=== PATIENT | male | born 1935 | race Caucasian/White ===

== ENCOUNTER 2019-07-31 19:19 | Inpatient (IN) ==
[2019-07-31] MEDS ORDERED: 0.9 % Sodium Chloride 1,000 ML IV ONE (19:28)
[2019-07-31 19:51] LABS: Basophils % 0.2 %; Eosinophils % 0.3 %; Hematocrit 38.1 % (37.5-50.1); Immature Granulocytes % 0.4 % (0-4); Lymphocytes # 1.6 K/mcL (0.6-4.6); Lymphocytes % 16.7 %; Mean Corpuscular HGB Conc 34.1 g/dL (31.6-35.5); Mean Corpuscular Hemoglobin 28.7 pg (28.0-33.3); Mean Corpuscular Volume 84.1 fL (83.0-100.0); Mean Platelet Volume 10.4 fL (9.4-12.4); Monocytes % 10.8 %; Neutrophils # 6.6 K/mcL (1.6-8.9); Platelet Count 169 K/mcL (140-400); Red Blood Count 4.53 M/mcL (4.19-5.50); Red Cell Distribution Width 14.3 % (11.5-14.5); Segmented Neutrophils % 71.6 %; White Blood Count 9.3 K/mcL (4.3-11.1)
[2019-07-31 19:57] LABS: INR 1.1; Prothrombin Time 12.3 Seconds (9.4-12.1)
[2019-07-31 20:09] LABS: Alanine Aminotransferase 6 Units/L (7-52); Albumin 4.3 g/dL (3.5-5.7); Albumin/Globulin Ratio 1.4 (1.1-2.2); Alkaline Phosphatase 51 Units/L (34-104); Aspartate Amino Transferase 11 Units/L (13-39); BUN/Creatinine Ratio 16 (6-26); Bilirubin,Total 1.3 mg/dL (0.3-1.0); Blood Urea Nitrogen 19 mg/dL (8-23); Calcium 10.1 mg/dL (8.6-10.3); Carbon Dioxide 24 mEq/L (23-29); Chloride 102 mEq/L (98-107); Globulin 3.1 g/dL (2.4-3.5); Glucose 96 mg/dL (70-105); Magnesium 2.1 mg/dL (1.6-2.6); Osmolality,Calculated 282 (280-300); Potassium 4.2 mEq/L (3.5-5.1); Sodium 135 mEq/L (136-145); Total Protein 7.4 g/dL (6.4-8.9); eGFR For African Americans > 60 (> 60); eGFR For Non-African Americans 57 (> 60)
[2019-07-31 20:13] LABS: Troponin I < 0.03 ng/mL (< 0.04)
[2019-07-31] MEDS ORDERED: Naloxone 0.4 MG/ML INJ IVP PRN ×2 (21:43→23:46)
[2019-07-31 22:03] LABS: Bilirubin,Urine Negative (Negative); Blood,Urine Moderate (Negative); Clarity,Urine Clear (Clear); Color,Urine Yellow (Yellow); Glucose,Urine (UA) Normal (Normal); Ketones,Urine 15 mg/dL (Negative); Leukocyte Esterase,Urine Moderate (Negative); Nitrite,Urine Positive (Negative); PH,Urine 5.5 pH Units (5.0-8.0); Protein,Urine Trace mg/dL (Neg-Trace); Urobilinogen,Urine Normal (Normal)
[2019-07-31 22:09] LABS: Bacteria,Urine Many per hpf (None-Few); Hyaline Casts,Urine Moderate per lpf (None-Few); Squamous Epithelial Cell,Urine Moderate per lpf (None-Few); WBC,Urine 50-100 per hpf (0-3)
[2019-08-01] MEDS ORDERED: cefTRIAXone 2,000 MG in 0.9 % Sodium Chloride Mini Bag 100 ML IVPB ONE (00:15)
[2019-08-01] MEDS: 0.9 % Sodium Chloride 1,000 ML IVC SCH ×3 (00:22→11:40)
[2019-08-01 08:00] LABS: Hematocrit 33.6 % (37.5-50.1); Hemoglobin 11.5 g/dL (12.9-16.9); Mean Corpuscular HGB Conc 34.2 g/dL (31.6-35.5); Mean Corpuscular Volume 84.8 fL (83.0-100.0); Mean Platelet Volume 10.3 fL (9.4-12.4); Platelet Count 141 K/mcL (140-400); Red Blood Count 3.96 M/mcL (4.19-5.50); Red Cell Distribution Width 14.2 % (11.5-14.5); White Blood Count 9.2 K/mcL (4.3-11.1)
[2019-08-01 08:18] LABS: BUN/Creatinine Ratio 19 (6-26); Blood Urea Nitrogen 15 mg/dL (8-23); Calcium 8.8 mg/dL (8.6-10.3); Carbon Dioxide 24 mEq/L (23-29); Chloride 108 mEq/L (98-107); Chol/HDL Ratio 3.6 (0-4.9); Cholesterol 142 mg/dL (< 200); Glucose 86 mg/dL (70-105); HDL Cholesterol 39 mg/dL (40-59); LDL Cholesterol,Calculated 95 mg/dL (0-99); Osmolality,Calculated 286 (280-300); Phosphorous 2.7 mg/dL (2.7-4.5); Potassium 3.8 mEq/L (3.5-5.1); Sodium 138 mEq/L (136-145); Triglycerides 40 mg/dL (< 150); eGFR For African Americans > 60 (> 60); eGFR For Non-African Americans > 60 (> 60)
[2019-08-01] MEDS: cefTRIAXone 1,000 MG in Water for inj. (sterile) 10 ML IVP SCH (11:41)
[2019-08-02] MEDS: 0.9 % Sodium Chloride 1,000 ML IVC SCH (01:15)
[2019-08-02 05:35] LABS: Basophils % 0.3 %; Eosinophils # 0.1 K/mcL (0.0-0.6); Eosinophils % 1.1 %; Hematocrit 36.2 % (37.5-50.1); Hemoglobin 12.4 g/dL (12.9-16.9); Lymphocytes # 1.6 K/mcL (0.6-4.6); Lymphocytes % 21.1 %; Mean Corpuscular HGB Conc 34.3 g/dL (31.6-35.5); Mean Corpuscular Hemoglobin 28.8 pg (28.0-33.3); Mean Corpuscular Volume 84.2 fL (83.0-100.0); Mean Platelet Volume 10.4 fL (9.4-12.4); Monocytes # 0.7 K/mcL (0.0-1.3); Monocytes % 10.1 %; Neutrophils # 4.9 K/mcL (1.6-8.9); Platelet Count 164 K/mcL (140-400); Red Cell Distribution Width 14.1 % (11.5-14.5); Segmented Neutrophils % 66.4 %; White Blood Count 7.4 K/mcL (4.3-11.1)
[2019-08-02 05:51] LABS: BUN/Creatinine Ratio 13 (6-26); Blood Urea Nitrogen 9 mg/dL (8-23); Calcium 9.2 mg/dL (8.6-10.3); Carbon Dioxide 24 mEq/L (23-29); Chloride 107 mEq/L (98-107); Glucose 92 mg/dL (70-105); Osmolality,Calculated 284 (280-300); Potassium 3.7 mEq/L (3.5-5.1); Sodium 138 mEq/L (136-145); eGFR For African Americans > 60 (> 60); eGFR For Non-African Americans > 60 (> 60)
[2019-08-02] MEDS: cefTRIAXone 1,000 MG in Water for inj. (sterile) 10 ML IVP SCH (10:01)
[2019-08-02] MEDS: haloperidoL 1 MG TABLET PO PRN ×2 (16:41→20:58)
[2019-08-03 05:11] LABS: Hematocrit 34.4 % (37.5-50.1); Hemoglobin 11.8 g/dL (12.9-16.9); Mean Corpuscular HGB Conc 34.3 g/dL (31.6-35.5); Mean Corpuscular Hemoglobin 28.9 pg (28.0-33.3); Mean Corpuscular Volume 84.1 fL (83.0-100.0); Mean Platelet Volume 10.3 fL (9.4-12.4); Platelet Count 167 K/mcL (140-400); Red Blood Count 4.09 M/mcL (4.19-5.50)
[2019-08-03 05:29] LABS: Alanine Aminotransferase 7 Units/L (7-52); Albumin 3.5 g/dL (3.5-5.7); Albumin/Globulin Ratio 1.3 (1.1-2.2); Alkaline Phosphatase 41 Units/L (34-104); Aspartate Amino Transferase 15 Units/L (13-39); BUN/Creatinine Ratio 15 (6-26); Bilirubin,Total 0.6 mg/dL (0.3-1.0); Blood Urea Nitrogen 11 mg/dL (8-23); Calcium 9.1 mg/dL (8.6-10.3); Carbon Dioxide 25 mEq/L (23-29); Chloride 107 mEq/L (98-107); Globulin 2.7 g/dL (2.4-3.5); Glucose 102 mg/dL (70-105); Osmolality,Calculated 288 (280-300); Potassium 3.6 mEq/L (3.5-5.1); Sodium 139 mEq/L (136-145); Total Protein 6.2 g/dL (6.4-8.9); eGFR For African Americans > 60 (> 60); eGFR For Non-African Americans > 60 (> 60)
[2019-08-03 05:42] LABS: Thyroid Stimulating Hormone 1.849 mcIU/mL (0.340-5.600)
[2019-08-03] MEDS ORDERED: levoFLOXacin 750 MG TABLET PO SCH (09:00)
[2019-08-03] MEDS: cefTRIAXone 1,000 MG in Water for inj. (sterile) 10 ML IVP SCH (10:16)
[2019-08-04 07:23] VITALS: BP 131/73
[2019-08-04] MEDS: cefTRIAXone 1,000 MG in Water for inj. (sterile) 10 ML IVP SCH (09:59)
[2019-08-05] MEDS ORDERED: *HR* Enoxaparin 40 MG/0.4 ML SYRINGE SQ SCH (06:00)
== END 2019-08-04 13:58 | disposition other institution (70) | DRG 194 ==
LOC: EMEROOGRE 19:19 → INPGRE 19:19
PROVIDERS: ADMIT Internal Medicine; ATTEND Internal Medicine

== ENCOUNTER 2019-08-04 14:02 | Inpatient (IN) ==
[2019-08-04] MEDS ORDERED: haloperidoL 1 MG TABLET PO PRN (14:20)
[2019-08-05 05:59] LABS: Basophils % 0.4 %; Eosinophils # 0.1 K/mcL (0.0-0.6); Eosinophils % 1.9 %; Hemoglobin 11.9 g/dL (12.9-16.9); Immature Granulocytes % 0.7 % (0-4); Lymphocytes # 1.8 K/mcL (0.6-4.6); Lymphocytes % 26.5 %; Mean Corpuscular Hemoglobin 28.8 pg (28.0-33.3); Mean Corpuscular Volume 84.7 fL (83.0-100.0); Mean Platelet Volume 10.3 fL (9.4-12.4); Monocytes # 0.8 K/mcL (0.0-1.3); Monocytes % 11.9 %; Platelet Count 194 K/mcL (140-400); Red Blood Count 4.13 M/mcL (4.19-5.50); Red Cell Distribution Width 13.8 % (11.5-14.5); Segmented Neutrophils % 58.6 %; White Blood Count 6.9 K/mcL (4.3-11.1)
[2019-08-05 06:15] LABS: BUN/Creatinine Ratio 17 (6-26); Blood Urea Nitrogen 13 mg/dL (8-23); Calcium 9.1 mg/dL (8.6-10.3); Carbon Dioxide 27 mEq/L (23-29); Chloride 107 mEq/L (98-107); Glucose 98 mg/dL (70-105); Magnesium 2.1 mg/dL (1.6-2.6); Osmolality,Calculated 288 (280-300); Potassium 4.1 mEq/L (3.5-5.1); Sodium 139 mEq/L (136-145); eGFR For African Americans > 60 (> 60); eGFR For Non-African Americans > 60 (> 60)
[2019-08-05] MEDS: *HR* Enoxaparin 40 MG/0.4 ML SYRINGE SQ SCH (06:28)
[2019-08-05] MEDS ORDERED: cefTRIAXone 1,000 MG in Water for inj. (sterile) 10 ML IVP SCH (09:00)
[2019-08-05] MEDS: Carbidopa/Levodopa 25/100 TABLET PO SCH ×2 (14:07→21:20)
[2019-08-06] MEDS: *HR* Enoxaparin 40 MG/0.4 ML SYRINGE SQ SCH (05:49)
[2019-08-06] MEDS: Aspirin Enteric Coated 81 MG Tablet PO SCH (08:00)
[2019-08-06] MEDS: Carbidopa/Levodopa 25/100 TABLET PO SCH ×3 (08:00→22:44)
[2019-08-07] MEDS: *HR* Enoxaparin 40 MG/0.4 ML SYRINGE SQ SCH (06:54)
[2019-08-07] MEDS: Aspirin Enteric Coated 81 MG Tablet PO SCH (08:21)
[2019-08-07] MEDS: Carbidopa/Levodopa 25/100 TABLET PO SCH ×3 (08:21→22:38)
[2019-08-08] MEDS: *HR* Enoxaparin 40 MG/0.4 ML SYRINGE SQ SCH (05:21)
[2019-08-08] MEDS: Carbidopa/Levodopa 25/100 TABLET PO SCH ×3 (07:54→21:01)
[2019-08-08] MEDS: Aspirin Enteric Coated 81 MG Tablet PO SCH (07:54)
[2019-08-09] MEDS: *HR* Enoxaparin 40 MG/0.4 ML SYRINGE SQ SCH (05:44)
[2019-08-09] MEDS: Carbidopa/Levodopa 25/100 TABLET PO SCH ×3 (08:24→20:27)
[2019-08-09] MEDS: Aspirin Enteric Coated 81 MG Tablet PO SCH (08:25)
[2019-08-10] MEDS: *HR* Enoxaparin 40 MG/0.4 ML SYRINGE SQ SCH (04:52)
[2019-08-10] MEDS: Aspirin Enteric Coated 81 MG Tablet PO SCH (08:15)
[2019-08-10] MEDS: Carbidopa/Levodopa 25/100 TABLET PO SCH ×3 (08:15→20:56)
[2019-08-11] MEDS: *HR* Enoxaparin 40 MG/0.4 ML SYRINGE SQ SCH (04:37)
[2019-08-11 05:41] LABS: Basophils # 0.1 K/mcL (0.0-0.2); Basophils % 0.7 %; Eosinophils # 0.1 K/mcL (0.0-0.6); Hematocrit 38.3 % (37.5-50.1); Hemoglobin 12.7 g/dL (12.9-16.9); Immature Granulocytes % 0.7 % (0-4); Lymphocytes # 2.1 K/mcL (0.6-4.6); Lymphocytes % 30.4 %; Mean Corpuscular HGB Conc 33.2 g/dL (31.6-35.5); Mean Corpuscular Hemoglobin 28.5 pg (28.0-33.3); Mean Corpuscular Volume 86.1 fL (83.0-100.0); Mean Platelet Volume 10.9 fL (9.4-12.4); Monocytes # 0.6 K/mcL (0.0-1.3); Monocytes % 9.1 %; Neutrophils # 3.9 K/mcL (1.6-8.9); Platelet Count 236 K/mcL (140-400); Red Blood Count 4.45 M/mcL (4.19-5.50); Red Cell Distribution Width 14.3 % (11.5-14.5); Segmented Neutrophils % 57.1 %; White Blood Count 6.8 K/mcL (4.3-11.1)
[2019-08-11 05:55] LABS: BUN/Creatinine Ratio 27 (6-26); Blood Urea Nitrogen 26 mg/dL (8-23); Calcium 9.9 mg/dL (8.6-10.3); Carbon Dioxide 28 mEq/L (23-29); Chloride 106 mEq/L (98-107); Glucose 99 mg/dL (70-105); Osmolality,Calculated 291 (280-300); Potassium 4.6 mEq/L (3.5-5.1); Sodium 138 mEq/L (136-145); eGFR For African Americans > 60 (> 60); eGFR For Non-African Americans > 60 (> 60)
[2019-08-11 07:30] VITALS: BP 138/72
[2019-08-11] MEDS: Aspirin Enteric Coated 81 MG Tablet PO SCH (07:53)
[2019-08-11] MEDS: Carbidopa/Levodopa 25/100 TABLET PO SCH (07:53)
== END 2019-08-11 13:10 | disposition home health service (06) | DRG 178 ==
LOC: INPGRE 14:02
PROVIDERS: ADMIT Family Medicine; ATTEND Family Medicine

== ENCOUNTER 2020-10-17 10:56 | Inpatient (IN) ==
[2020-10-17] MEDS: Carbidopa/Levodopa 25/100 TABLET PO SCH ×2 (14:54→21:33)
[2020-10-17] MEDS: Cefdinir 300 MG CAPSULE PO SCH (21:31)
[2020-10-18 04:56] LABS: Basophils % 0.5 %; Eosinophils # 0.1 K/mcL (0.0-0.6); Hematocrit 37.9 % (37.5-50.1); Hemoglobin 12.4 g/dL (12.9-16.9); Immature Granulocytes % 0.2 % (0-4); Lymphocytes # 1.6 K/mcL (0.6-4.6); Lymphocytes % 25.7 %; Mean Corpuscular HGB Conc 32.7 g/dL (31.6-35.5); Mean Corpuscular Hemoglobin 28.1 pg (28.0-33.3); Mean Corpuscular Volume 85.7 fL (83.0-100.0); Mean Platelet Volume 11.1 fL (9.4-12.4); Monocytes # 0.8 K/mcL (0.0-1.3); Monocytes % 12.4 %; Neutrophils # 3.6 K/mcL (1.6-8.9); Platelet Count 166 K/mcL (140-400); Red Blood Count 4.42 M/mcL (4.19-5.50); Segmented Neutrophils % 59.2 %; White Blood Count 6.1 K/mcL (4.3-11.1)
[2020-10-18 05:11] LABS: BUN/Creatinine Ratio 24 (6-26); Blood Urea Nitrogen 22 mg/dL (8-23); Calcium 10.1 mg/dL (8.6-10.3); Carbon Dioxide 27 mEq/L (23-29); Chloride 105 mEq/L (98-107); Glucose 90 mg/dL (70-105); Osmolality,Calculated 289 (280-300); Potassium 4.1 mEq/L (3.5-5.1); Sodium 138 mEq/L (136-145); eGFR For African Americans > 60 (> 60); eGFR For Non-African Americans > 60 (> 60)
[2020-10-18] MEDS: *HR* Enoxaparin 40 MG/0.4 ML SYRINGE SQ SCH (05:11)
[2020-10-18 08:16] LABS: % Iron Saturation 19 % (20-55); Iron 48 mcg/dL (65-175); Transferrin 183 mg/dL (203-362)
[2020-10-18] MEDS: Cefdinir 300 MG CAPSULE PO SCH ×2 (08:23→19:53)
[2020-10-18] MEDS: Carbidopa/Levodopa 25/100 TABLET PO SCH ×3 (08:23→19:53)
[2020-10-18] MEDS: Cyanocobalamin (B-12) 1,000 MCG TABLET PO SCH (08:23)
[2020-10-18] MEDS: Fluconazole 100 MG TABLET PO SCH (08:23)
[2020-10-18] MEDS: lisinopriL 5 MG TABLET PO SCH (19:53)
[2020-10-19] MEDS: *HR* Enoxaparin 40 MG/0.4 ML SYRINGE SQ SCH (04:47)
[2020-10-19] MEDS ORDERED: Sucralfate 1 GM TABLET PO SCH (09:45)
[2020-10-19] MEDS: lisinopriL 5 MG TABLET PO SCH (10:38)
[2020-10-19] MEDS: Cefdinir 300 MG CAPSULE PO SCH ×2 (10:38→21:14)
[2020-10-19] MEDS: Fluconazole 100 MG TABLET PO SCH (10:38)
[2020-10-19] MEDS: Carbidopa/Levodopa 25/100 TABLET PO SCH ×3 (10:38→21:14)
[2020-10-19] MEDS: Cyanocobalamin (B-12) 1,000 MCG TABLET PO SCH (10:38)
[2020-10-20] MEDS: *HR* Enoxaparin 40 MG/0.4 ML SYRINGE SQ SCH (05:35)
[2020-10-20 08:12] LABS: Basophils # 0.1 K/mcL (0.0-0.2); Basophils % 0.6 %; Eosinophils # 0.1 K/mcL (0.0-0.6); Eosinophils % 1.4 %; Hematocrit 40.1 % (37.5-50.1); Hemoglobin 12.9 g/dL (12.9-16.9); Immature Granulocytes % 0.5 % (0-4); Lymphocytes % 23.4 %; Mean Corpuscular HGB Conc 32.2 g/dL (31.6-35.5); Mean Corpuscular Hemoglobin 27.9 pg (28.0-33.3); Mean Corpuscular Volume 86.6 fL (83.0-100.0); Mean Platelet Volume 11.6 fL (9.4-12.4); Monocytes # 0.9 K/mcL (0.0-1.3); Monocytes % 10.5 %; Neutrophils # 5.5 K/mcL (1.6-8.9); Platelet Count 216 K/mcL (140-400); Red Blood Count 4.63 M/mcL (4.19-5.50); Red Cell Distribution Width 15.3 % (11.5-14.5); Segmented Neutrophils % 63.6 %; White Blood Count 8.7 K/mcL (4.3-11.1)
[2020-10-20] MEDS: Fluconazole 100 MG TABLET PO SCH (08:32)
[2020-10-20] MEDS: lisinopriL 5 MG TABLET PO SCH (08:32)
[2020-10-20] MEDS: Cyanocobalamin (B-12) 1,000 MCG TABLET PO SCH (08:32)
[2020-10-20] MEDS: Cefdinir 300 MG CAPSULE PO SCH ×2 (08:33→22:34)
[2020-10-20] MEDS: Carbidopa/Levodopa 25/100 TABLET PO SCH ×3 (08:33→22:34)
[2020-10-20 11:58] LABS: Calcium 10.4 mg/dL (8.6-10.3)
[2020-10-20] MEDS: polyethylene glycoL 3350 17 GM POWD.PACK PO PRN (18:21)
[2020-10-21 06:24] LABS: Calcium 10.2 mg/dL (8.6-10.3); Potassium 4.4 mEq/L (3.5-5.1)
[2020-10-21] MEDS: *HR* Enoxaparin 40 MG/0.4 ML SYRINGE SQ SCH (06:37)
[2020-10-21] MEDS: Fluconazole 100 MG TABLET PO SCH (08:47)
[2020-10-21] MEDS: amLODIPine 5 MG TABLET PO SCH (08:48)
[2020-10-21] MEDS: Cefdinir 300 MG CAPSULE PO SCH (08:49)
[2020-10-21] MEDS: Carbidopa/Levodopa 25/100 TABLET PO SCH ×3 (08:49→19:48)
[2020-10-21] MEDS: Cyanocobalamin (B-12) 1,000 MCG TABLET PO SCH (08:49)
[2020-10-22] MEDS: *HR* Enoxaparin 40 MG/0.4 ML SYRINGE SQ SCH (04:19)
[2020-10-22 06:14] LABS: Basophils % 0.5 %; Eosinophils # 0.1 K/mcL (0.0-0.6); Eosinophils % 2.2 %; Hematocrit 36.6 % (37.5-50.1); Hemoglobin 11.8 g/dL (12.9-16.9); Immature Granulocytes % 0.2 % (0-4); Lymphocytes # 2.1 K/mcL (0.6-4.6); Lymphocytes % 35.8 %; Mean Corpuscular HGB Conc 32.2 g/dL (31.6-35.5); Mean Corpuscular Volume 86.9 fL (83.0-100.0); Mean Platelet Volume 10.5 fL (9.4-12.4); Monocytes # 0.7 K/mcL (0.0-1.3); Monocytes % 11.4 %; Neutrophils # 2.9 K/mcL (1.6-8.9); Platelet Count 180 K/mcL (140-400); Red Blood Count 4.21 M/mcL (4.19-5.50); Red Cell Distribution Width 15.7 % (11.5-14.5); Segmented Neutrophils % 49.9 %; White Blood Count 5.8 K/mcL (4.3-11.1)
[2020-10-22 06:35] LABS: BUN/Creatinine Ratio 32 (6-26); Blood Urea Nitrogen 38 mg/dL (8-23); Calcium 10.2 mg/dL (8.6-10.3); Carbon Dioxide 28 mEq/L (23-29); Chloride 106 mEq/L (98-107); Glucose 90 mg/dL (70-105); Osmolality,Calculated 299 (280-300); Potassium 4.5 mEq/L (3.5-5.1); Sodium 140 mEq/L (136-145); eGFR For African Americans > 60 (> 60); eGFR For Non-African Americans 59 (> 60)
[2020-10-22] MEDS: polyethylene glycoL 3350 17 GM POWD.PACK PO PRN (08:43)
[2020-10-22] MEDS: Folic Acid 1 MG TABLET PO SCH (08:43)
[2020-10-22] MEDS: amLODIPine 5 MG TABLET PO SCH (08:43)
[2020-10-22] MEDS: Carbidopa/Levodopa 25/100 TABLET PO SCH ×3 (08:43→19:21)
[2020-10-22] MEDS: Cyanocobalamin (B-12) 1,000 MCG TABLET PO SCH (08:43)
[2020-10-22] MEDS ORDERED: MOM Conc 10 ML UD.LIQ PO PRN (11:27)
[2020-10-23] MEDS: *HR* Enoxaparin 40 MG/0.4 ML SYRINGE SQ SCH (04:46)
[2020-10-23] MEDS: Folic Acid 1 MG TABLET PO SCH (09:29)
[2020-10-23] MEDS: Cyanocobalamin (B-12) 1,000 MCG TABLET PO SCH (09:29)
[2020-10-23] MEDS: Carbidopa/Levodopa 25/100 TABLET PO SCH ×3 (09:30→21:09)
[2020-10-23] MEDS: amLODIPine 5 MG TABLET PO SCH (09:30)
[2020-10-23] MEDS ORDERED: E-Z-PAQUE (BARIUM SULF) SUSP 1 BOTTLE PO ONE (11:58)
[2020-10-23] MEDS ORDERED: E-Z-HD (BARIUM SULF) SUSPENSION PO ONE (11:58)
[2020-10-24] MEDS: *HR* Enoxaparin 40 MG/0.4 ML SYRINGE SQ SCH (06:00)
[2020-10-24] MEDS: amLODIPine 5 MG TABLET PO SCH (09:37)
[2020-10-24] MEDS: Folic Acid 1 MG TABLET PO SCH (09:37)
[2020-10-24] MEDS: Carbidopa/Levodopa 25/100 TABLET PO SCH ×3 (09:37→20:20)
[2020-10-24] MEDS: Cyanocobalamin (B-12) 1,000 MCG TABLET PO SCH (09:37)
[2020-10-25] MEDS: *HR* Enoxaparin 40 MG/0.4 ML SYRINGE SQ SCH (05:02)
[2020-10-25 05:11] LABS: Basophils % 0.3 %; Eosinophils # 0.1 K/mcL (0.0-0.6); Eosinophils % 1.5 %; Hematocrit 34.2 % (37.5-50.1); Hemoglobin 11.2 g/dL (12.9-16.9); Immature Granulocytes % 0.4 % (0-4); Lymphocytes # 1.7 K/mcL (0.6-4.6); Lymphocytes % 23.3 %; Mean Corpuscular HGB Conc 32.7 g/dL (31.6-35.5); Mean Corpuscular Hemoglobin 28.2 pg (28.0-33.3); Mean Corpuscular Volume 86.1 fL (83.0-100.0); Mean Platelet Volume 11.3 fL (9.4-12.4); Monocytes # 0.8 K/mcL (0.0-1.3); Monocytes % 10.7 %; Neutrophils # 4.6 K/mcL (1.6-8.9); Platelet Count 184 K/mcL (140-400); Red Blood Count 3.97 M/mcL (4.19-5.50); Segmented Neutrophils % 63.8 %; White Blood Count 7.3 K/mcL (4.3-11.1)
[2020-10-25 05:27] LABS: BUN/Creatinine Ratio 35 (6-26); Blood Urea Nitrogen 37 mg/dL (8-23); Calcium 9.8 mg/dL (8.6-10.3); Carbon Dioxide 28 mEq/L (23-29); Chloride 104 mEq/L (98-107); Glucose 84 mg/dL (70-105); Osmolality,Calculated 294 (280-300); Potassium 4.6 mEq/L (3.5-5.1); Sodium 138 mEq/L (136-145); eGFR For African Americans > 60 (> 60); eGFR For Non-African Americans > 60 (> 60)
[2020-10-25] MEDS: Folic Acid 1 MG TABLET PO SCH (07:52)
[2020-10-25] MEDS: Carbidopa/Levodopa 25/100 TABLET PO SCH ×3 (07:52→20:44)
[2020-10-25] MEDS: Cyanocobalamin (B-12) 1,000 MCG TABLET PO SCH (07:52)
[2020-10-25] MEDS: amLODIPine 5 MG TABLET PO SCH (07:52)
[2020-10-26] MEDS: *HR* Enoxaparin 40 MG/0.4 ML SYRINGE SQ SCH (06:02)
[2020-10-26] MEDS: Carbidopa/Levodopa 25/100 TABLET PO SCH ×3 (07:52→19:59)
[2020-10-26] MEDS: Folic Acid 1 MG TABLET PO SCH (07:52)
[2020-10-26] MEDS: amLODIPine 5 MG TABLET PO SCH (07:52)
[2020-10-26] MEDS: Cyanocobalamin (B-12) 1,000 MCG TABLET PO SCH (07:52)
[2020-10-27] MEDS: *HR* Enoxaparin 40 MG/0.4 ML SYRINGE SQ SCH (04:53)
[2020-10-27 06:45] VITALS: BP 106/66
[2020-10-27] MEDS: Folic Acid 1 MG TABLET PO SCH (08:15)
[2020-10-27] MEDS: amLODIPine 5 MG TABLET PO SCH (08:15)
[2020-10-27] MEDS: Cyanocobalamin (B-12) 1,000 MCG TABLET PO SCH (08:16)
[2020-10-27] MEDS: Carbidopa/Levodopa 25/100 TABLET PO SCH (08:16)
== END 2020-10-27 11:03 | disposition home health service (06) | DRG 945 ==
LOC: INPGRE 12:52
PROVIDERS: ADMIT Family Medicine; ATTEND Family Medicine

== ENCOUNTER 2021-02-23 10:16 | Inpatient (IN) ==
[2021-02-23] MEDS ORDERED: Ondansetron ODT 4 MG TAB.RAPDIS SL PRN (18:18)
[2021-02-23] MEDS ORDERED: polyethylene glycoL 3350 17 GM POWD.PACK PO PRN (18:18)
[2021-02-23] MEDS ORDERED: Mag Hydrox/Al Hydrox/Simeth 30 ML UDC PO PRN (18:19)
[2021-02-23] MEDS ORDERED: Ipratropium/Albuterol Neb 3 ML IH PRN (18:22)
[2021-02-23] MEDS: QUEtiapine Fumarate 25 MG TABLET PO SCH (20:27)
[2021-02-23] MEDS: Carbidopa/Levodopa 25/100 TABLET PO SCH (20:27)
[2021-02-23] MEDS ORDERED: QUEtiapine Fumarate 25 MG TABLET PO SCH (21:00)
[2021-02-24] MEDS: *HR* Enoxaparin 40 MG/0.4 ML SYRINGE SQ SCH (05:12)
[2021-02-24 06:28] LABS: Hematocrit 32.5 % (37.5-50.1); Hemoglobin 10.4 g/dL (12.9-16.9); Mean Corpuscular Hemoglobin 27.1 pg (28.0-33.3); Mean Corpuscular Volume 84.6 fL (83.0-100.0); Mean Platelet Volume 10.9 fL (9.4-12.4); Platelet Count 268 K/mcL (140-400); Red Blood Count 3.84 M/mcL (4.19-5.50); Red Cell Distribution Width 14.5 % (11.5-14.5); White Blood Count 7.8 K/mcL (4.3-11.1)
[2021-02-24 07:05] LABS: BUN/Creatinine Ratio 25 (6-26); Blood Urea Nitrogen 21 mg/dL (8-23); Calcium 9.8 mg/dL (8.6-10.3); Carbon Dioxide 27 mEq/L (23-29); Chloride 98 mEq/L (98-107); Glucose 77 mg/dL (70-105); Osmolality,Calculated 274 (280-300); Sodium 131 mEq/L (136-145); eGFR For African Americans > 60 (> 60); eGFR For Non-African Americans > 60 (> 60)
[2021-02-24] MEDS: amLODIPine 5 MG TABLET PO SCH (08:49)
[2021-02-24] MEDS: Carbidopa/Levodopa 25/100 TABLET PO SCH ×3 (08:49→19:57)
[2021-02-24] MEDS: Acetaminophen 325 MG TABLET PO PRN (08:49)
[2021-02-24] MEDS: Cyanocobalamin (B-12) 1,000 MCG TABLET PO SCH (08:49)
[2021-02-24] MEDS: Iron Sucrose Complex 200 MG in 0.9 % Sodium Chloride 100 ML IVPB SCH (11:47)
[2021-02-24] MEDS: QUEtiapine Fumarate 25 MG TABLET PO SCH (19:57)
[2021-02-25] MEDS: *HR* Enoxaparin 40 MG/0.4 ML SYRINGE SQ SCH (05:22)
[2021-02-25] MEDS: Acetaminophen 325 MG TABLET PO PRN ×2 (09:18→17:31)
[2021-02-25] MEDS: amLODIPine 5 MG TABLET PO SCH (09:18)
[2021-02-25] MEDS: Carbidopa/Levodopa 25/100 TABLET PO SCH ×3 (09:18→20:52)
[2021-02-25] MEDS: Cyanocobalamin (B-12) 1,000 MCG TABLET PO SCH (09:19)
[2021-02-25] MEDS: Iron Sucrose Complex 200 MG in 0.9 % Sodium Chloride 100 ML IVPB SCH (10:12)
[2021-02-25 11:50] LABS: Hematocrit 33.1 % (37.5-50.1); Hemoglobin 10.6 g/dL (12.9-16.9); Mean Corpuscular Hemoglobin 27.5 pg (28.0-33.3); Mean Platelet Volume 10.6 fL (9.4-12.4); Platelet Count 295 K/mcL (140-400); Red Blood Count 3.85 M/mcL (4.19-5.50); Red Cell Distribution Width 14.3 % (11.5-14.5)
[2021-02-25] MEDS: QUEtiapine Fumarate 25 MG TABLET PO SCH (20:52)
[2021-02-26] MEDS: *HR* Enoxaparin 40 MG/0.4 ML SYRINGE SQ SCH (05:52)
[2021-02-26] MEDS: Acetaminophen 325 MG TABLET PO PRN ×2 (08:08→20:48)
[2021-02-26] MEDS: amLODIPine 5 MG TABLET PO SCH (08:08)
[2021-02-26] MEDS: Carbidopa/Levodopa 25/100 TABLET PO SCH ×3 (08:09→20:48)
[2021-02-26] MEDS: Cyanocobalamin (B-12) 1,000 MCG TABLET PO SCH (08:09)
[2021-02-26] MEDS: Iron Sucrose Complex 200 MG in 0.9 % Sodium Chloride 100 ML IVPB SCH (09:35)
[2021-02-26] MEDS: QUEtiapine Fumarate 25 MG TABLET PO SCH (20:48)
[2021-02-27] MEDS: *HR* Enoxaparin 40 MG/0.4 ML SYRINGE SQ SCH (05:02)
[2021-02-27] MEDS: amLODIPine 5 MG TABLET PO SCH (09:10)
[2021-02-27] MEDS: Cyanocobalamin (B-12) 1,000 MCG TABLET PO SCH (09:10)
[2021-02-27] MEDS: Acetaminophen 325 MG TABLET PO PRN (09:10)
[2021-02-27] MEDS: Carbidopa/Levodopa 25/100 TABLET PO SCH ×3 (09:11→20:37)
[2021-02-27] MEDS ORDERED: E-Z-HD (BARIUM SULF) SUSPENSION PO ONE (14:10)
[2021-02-27] MEDS ORDERED: E-Z-PAQUE (BARIUM SULF) SUSP 1 BOTTLE PO ONE (14:10)
[2021-02-27] MEDS: QUEtiapine Fumarate 25 MG TABLET PO SCH (20:37)
[2021-02-28 04:44] LABS: Basophils % 0.4 %; Eosinophils # 0.1 K/mcL (0.0-0.6); Eosinophils % 1.1 %; Hematocrit 31.7 % (37.5-50.1); Hemoglobin 10.2 g/dL (12.9-16.9); Immature Granulocytes % 1.1 % (0-4); Lymphocytes # 1.8 K/mcL (0.6-4.6); Lymphocytes % 19.5 %; Mean Corpuscular HGB Conc 32.2 g/dL (31.6-35.5); Mean Corpuscular Hemoglobin 27.7 pg (28.0-33.3); Mean Corpuscular Volume 86.1 fL (83.0-100.0); Mean Platelet Volume 10.7 fL (9.4-12.4); Monocytes % 10.4 %; Neutrophils # 6.1 K/mcL (1.6-8.9); Platelet Count 311 K/mcL (140-400); Red Blood Count 3.68 M/mcL (4.19-5.50); Red Cell Distribution Width 14.6 % (11.5-14.5); Segmented Neutrophils % 67.5 %; White Blood Count 9.1 K/mcL (4.3-11.1)
[2021-02-28 04:57] LABS: BUN/Creatinine Ratio 23 (6-26); Blood Urea Nitrogen 19 mg/dL (8-23); Calcium 9.2 mg/dL (8.6-10.3); Carbon Dioxide 26 mEq/L (23-29); Chloride 104 mEq/L (98-107); Glucose 74 mg/dL (70-105); Osmolality,Calculated 281 (280-300); Potassium 4.1 mEq/L (3.5-5.1); Sodium 135 mEq/L (136-145); eGFR For African Americans > 60 (> 60); eGFR For Non-African Americans > 60 (> 60)
[2021-02-28] MEDS: *HR* Enoxaparin 40 MG/0.4 ML SYRINGE SQ SCH (05:40)
[2021-02-28] MEDS: Carbidopa/Levodopa 25/100 TABLET PO SCH ×3 (08:18→19:58)
[2021-02-28] MEDS: Acetaminophen 325 MG TABLET PO PRN ×2 (08:18→15:32)
[2021-02-28] MEDS: Cyanocobalamin (B-12) 1,000 MCG TABLET PO SCH (08:18)
[2021-02-28] MEDS: amLODIPine 5 MG TABLET PO SCH (08:18)
[2021-02-28] MEDS: QUEtiapine Fumarate 25 MG TABLET PO SCH (19:58)
[2021-03-01] MEDS: *HR* Enoxaparin 40 MG/0.4 ML SYRINGE SQ SCH (05:21)
[2021-03-01] MEDS: Acetaminophen 325 MG TABLET PO PRN (07:52)
[2021-03-01] MEDS: Carbidopa/Levodopa 25/100 TABLET PO SCH ×3 (07:52→20:33)
[2021-03-01] MEDS: amLODIPine 5 MG TABLET PO SCH (07:53)
[2021-03-01] MEDS: Cyanocobalamin (B-12) 1,000 MCG TABLET PO SCH (07:53)
[2021-03-01] MEDS: QUEtiapine Fumarate 25 MG TABLET PO SCH (20:33)
[2021-03-02] MEDS: *HR* Enoxaparin 40 MG/0.4 ML SYRINGE SQ SCH (05:16)
[2021-03-02] MEDS: amLODIPine 5 MG TABLET PO SCH (09:47)
[2021-03-02] MEDS: Carbidopa/Levodopa 25/100 TABLET PO SCH ×3 (09:47→20:31)
[2021-03-02] MEDS: Cyanocobalamin (B-12) 1,000 MCG TABLET PO SCH (09:47)
[2021-03-02] MEDS: QUEtiapine Fumarate 25 MG TABLET PO SCH (20:31)
[2021-03-03] MEDS: *HR* Enoxaparin 40 MG/0.4 ML SYRINGE SQ SCH (05:33)
[2021-03-03 05:58] LABS: Basophils % 0.7 %; Eosinophils # 0.1 K/mcL (0.0-0.6); Hematocrit 31.2 % (37.5-50.1); Hemoglobin 9.8 g/dL (12.9-16.9); Immature Granulocytes % 0.8 % (0-4); Lymphocytes # 1.7 K/mcL (0.6-4.6); Lymphocytes % 28.5 %; Mean Corpuscular HGB Conc 31.4 g/dL (31.6-35.5); Mean Platelet Volume 10.7 fL (9.4-12.4); Monocytes # 0.7 K/mcL (0.0-1.3); Monocytes % 11.8 %; Neutrophils # 3.3 K/mcL (1.6-8.9); Platelet Count 282 K/mcL (140-400); Red Blood Count 3.63 M/mcL (4.19-5.50); Red Cell Distribution Width 15.4 % (11.5-14.5); Segmented Neutrophils % 56.2 %; White Blood Count 5.9 K/mcL (4.3-11.1)
[2021-03-03 06:15] LABS: BUN/Creatinine Ratio 28 (6-26); Blood Urea Nitrogen 21 mg/dL (8-23); Calcium 9.4 mg/dL (8.6-10.3); Carbon Dioxide 28 mEq/L (23-29); Chloride 104 mEq/L (98-107); Glucose 72 mg/dL (70-105); Osmolality,Calculated 284 (280-300); Potassium 4.3 mEq/L (3.5-5.1); Sodium 136 mEq/L (136-145); eGFR For African Americans > 60 (> 60); eGFR For Non-African Americans > 60 (> 60)
[2021-03-03] MEDS: amLODIPine 5 MG TABLET PO SCH (08:55)
[2021-03-03] MEDS: Carbidopa/Levodopa 25/100 TABLET PO SCH ×3 (08:55→20:05)
[2021-03-03] MEDS: Cyanocobalamin (B-12) 1,000 MCG TABLET PO SCH (08:56)
[2021-03-03] MEDS: QUEtiapine Fumarate 25 MG TABLET PO SCH (20:05)
[2021-03-04] MEDS: *HR* Enoxaparin 40 MG/0.4 ML SYRINGE SQ SCH (05:48)
[2021-03-04] MEDS: Carbidopa/Levodopa 25/100 TABLET PO SCH ×3 (08:52→21:02)
[2021-03-04] MEDS: amLODIPine 5 MG TABLET PO SCH (08:53)
[2021-03-04] MEDS: Cyanocobalamin (B-12) 1,000 MCG TABLET PO SCH (08:53)
[2021-03-04] MEDS: QUEtiapine Fumarate 25 MG TABLET PO SCH (21:02)
[2021-03-05] MEDS: *HR* Enoxaparin 40 MG/0.4 ML SYRINGE SQ SCH (05:09)
[2021-03-05] MEDS: Carbidopa/Levodopa 25/100 TABLET PO SCH ×3 (08:25→20:17)
[2021-03-05] MEDS: Acetaminophen 325 MG TABLET PO PRN (08:25)
[2021-03-05] MEDS: Cyanocobalamin (B-12) 1,000 MCG TABLET PO SCH (08:26)
[2021-03-05] MEDS: amLODIPine 5 MG TABLET PO SCH (08:26)
[2021-03-05] MEDS: QUEtiapine Fumarate 25 MG TABLET PO SCH (20:17)
[2021-03-06] MEDS: *HR* Enoxaparin 40 MG/0.4 ML SYRINGE SQ SCH (04:31)
[2021-03-06 04:53] LABS: Basophils % 0.7 %; Eosinophils # 0.1 K/mcL (0.0-0.6); Eosinophils % 2.2 %; Hematocrit 34.4 % (37.5-50.1); Hemoglobin 10.7 g/dL (12.9-16.9); Immature Granulocytes % 0.9 % (0-4); Lymphocytes # 1.8 K/mcL (0.6-4.6); Lymphocytes % 34.3 %; Mean Corpuscular HGB Conc 31.1 g/dL (31.6-35.5); Mean Corpuscular Hemoglobin 27.1 pg (28.0-33.3); Mean Corpuscular Volume 87.1 fL (83.0-100.0); Mean Platelet Volume 10.9 fL (9.4-12.4); Monocytes # 0.7 K/mcL (0.0-1.3); Monocytes % 12.3 %; Neutrophils # 2.7 K/mcL (1.6-8.9); Platelet Count 247 K/mcL (140-400); Red Blood Count 3.95 M/mcL (4.19-5.50); Red Cell Distribution Width 15.9 % (11.5-14.5); Segmented Neutrophils % 49.6 %; White Blood Count 5.4 K/mcL (4.3-11.1)
[2021-03-06 05:07] LABS: BUN/Creatinine Ratio 30 (6-26); Blood Urea Nitrogen 22 mg/dL (8-23); Carbon Dioxide 30 mEq/L (23-29); Chloride 105 mEq/L (98-107); Glucose 71 mg/dL (70-105); Osmolality,Calculated 288 (280-300); Potassium 4.8 mEq/L (3.5-5.1); Sodium 138 mEq/L (136-145); eGFR For African Americans > 60 (> 60); eGFR For Non-African Americans > 60 (> 60)
[2021-03-06 05:28] LABS: Immature Reticulocyte % 24.6 % (11.0-38.0); Retculocyte # 0.1 M/mcL (0.05-0.10); Reticulocyte % 2.8 % (1.6-2.8)
[2021-03-06] MEDS: amLODIPine 5 MG TABLET PO SCH (09:07)
[2021-03-06] MEDS: Carbidopa/Levodopa 25/100 TABLET PO SCH ×3 (09:07→19:40)
[2021-03-06] MEDS: Cyanocobalamin (B-12) 1,000 MCG TABLET PO SCH (09:07)
[2021-03-06] MEDS: QUEtiapine Fumarate 25 MG TABLET PO SCH (19:39)
[2021-03-06] MEDS: Acetaminophen 325 MG TABLET PO PRN (19:40)
[2021-03-07] MEDS: *HR* Enoxaparin 40 MG/0.4 ML SYRINGE SQ SCH (05:37)
[2021-03-07] MEDS: Cyanocobalamin (B-12) 1,000 MCG TABLET PO SCH (09:46)
[2021-03-07] MEDS: Carbidopa/Levodopa 25/100 TABLET PO SCH ×3 (09:46→20:29)
[2021-03-07] MEDS: amLODIPine 5 MG TABLET PO SCH (09:46)
[2021-03-08] MEDS: *HR* Enoxaparin 40 MG/0.4 ML SYRINGE SQ SCH (05:08)
[2021-03-08 08:07] VITALS: BP 133/70; PULSE 58; RESP 18; TEMP 97.8; O2SAT 98
[2021-03-08] MEDS: amLODIPine 5 MG TABLET PO SCH (08:29)
[2021-03-08] MEDS: Cyanocobalamin (B-12) 1,000 MCG TABLET PO SCH (08:29)
[2021-03-08] MEDS: Carbidopa/Levodopa 25/100 TABLET PO SCH (08:29)
== END 2021-03-08 13:50 | disposition home health service (06) | DRG 947 ==
LOC: INPGRE 17:41
PROVIDERS: ADMIT Family Medicine; ATTEND Family Medicine

== ENCOUNTER 2021-06-23 15:26 | Inpatient (IN) ==
[2021-06-23] MEDS: metroNIDAZOLE 500 MG TABLET PO SCH (21:25)
[2021-06-23] MEDS: Carbidopa/Levodopa 25/100 TABLET PO SCH (21:25)
[2021-06-23] MEDS: Cefdinir 300 MG CAPSULE PO SCH (21:25)
[2021-06-24] MEDS: *HR* Enoxaparin 40 MG/0.4 ML SYRINGE SQ SCH (06:05)
[2021-06-24] MEDS: metroNIDAZOLE 500 MG TABLET PO SCH ×3 (07:42→19:56)
[2021-06-24] MEDS: Carbidopa/Levodopa 25/100 TABLET PO SCH ×3 (07:42→19:56)
[2021-06-24] MEDS: Cefdinir 300 MG CAPSULE PO SCH ×2 (07:42→19:56)
[2021-06-24] MEDS: amLODIPine 5 MG TABLET PO SCH (10:58)
[2021-06-24] MEDS: QUEtiapine Fumarate 25 MG TABLET PO SCH ×2 (10:59→16:45)
[2021-06-24] MEDS: Cyanocobalamin (B-12) 1,000 MCG TABLET PO SCH (10:59)
[2021-06-25 05:01] LABS: Hematocrit 35.3 % (37.5-50.1); Hemoglobin 11.6 g/dL (12.9-16.9); Mean Corpuscular HGB Conc 32.9 g/dL (31.6-35.5); Mean Corpuscular Hemoglobin 27.8 pg (28.0-33.3); Mean Corpuscular Volume 84.4 fL (83.0-100.0); Mean Platelet Volume 10.4 fL (9.4-12.4); Platelet Count 152 K/mcL (140-400); Red Blood Count 4.18 M/mcL (4.19-5.50); Red Cell Distribution Width 16.3 % (11.5-14.5); White Blood Count 5.8 K/mcL (4.3-11.1)
[2021-06-25] MEDS: *HR* Enoxaparin 40 MG/0.4 ML SYRINGE SQ SCH (05:13)
[2021-06-25 05:17] LABS: BUN/Creatinine Ratio 21 (6-26); Blood Urea Nitrogen 18 mg/dL (8-23); Calcium 9.4 mg/dL (8.6-10.3); Carbon Dioxide 27 mEq/L (23-29); Chloride 107 mEq/L (98-107); Glucose 90 mg/dL (70-105); Osmolality,Calculated 289 (280-300); Potassium 4.3 mEq/L (3.5-5.1); Sodium 139 mEq/L (136-145); eGFR For African Americans > 60 (> 60); eGFR For Non-African Americans > 60 (> 60)
[2021-06-25] MEDS: Carbidopa/Levodopa 25/100 TABLET PO SCH ×3 (09:09→20:44)
[2021-06-25] MEDS: Cefdinir 300 MG CAPSULE PO SCH ×2 (09:09→20:44)
[2021-06-25] MEDS: Cyanocobalamin (B-12) 1,000 MCG TABLET PO SCH (09:09)
[2021-06-25] MEDS: QUEtiapine Fumarate 25 MG TABLET PO SCH ×2 (09:09→16:32)
[2021-06-25] MEDS: metroNIDAZOLE 500 MG TABLET PO SCH ×3 (09:09→20:44)
[2021-06-25] MEDS: amLODIPine 5 MG TABLET PO SCH (09:09)
[2021-06-26] MEDS: *HR* Enoxaparin 40 MG/0.4 ML SYRINGE SQ SCH (06:28)
[2021-06-26] MEDS: Cefdinir 300 MG CAPSULE PO SCH ×2 (08:55→20:40)
[2021-06-26] MEDS: Carbidopa/Levodopa 25/100 TABLET PO SCH ×3 (08:55→20:40)
[2021-06-26] MEDS: metroNIDAZOLE 500 MG TABLET PO SCH ×3 (08:56→20:39)
[2021-06-26] MEDS: Cyanocobalamin (B-12) 1,000 MCG TABLET PO SCH (08:56)
[2021-06-26] MEDS: QUEtiapine Fumarate 25 MG TABLET PO SCH ×2 (08:56→17:15)
[2021-06-27] MEDS: *HR* Enoxaparin 40 MG/0.4 ML SYRINGE SQ SCH (04:34)
[2021-06-27] MEDS: QUEtiapine Fumarate 25 MG TABLET PO SCH ×2 (08:03→14:59)
[2021-06-27] MEDS: Cyanocobalamin (B-12) 1,000 MCG TABLET PO SCH (08:04)
[2021-06-27] MEDS: Cefdinir 300 MG CAPSULE PO SCH ×2 (08:04→20:03)
[2021-06-27] MEDS: Carbidopa/Levodopa 25/100 TABLET PO SCH ×3 (08:04→20:01)
[2021-06-27] MEDS: metroNIDAZOLE 500 MG TABLET PO SCH ×3 (08:04→20:02)
[2021-06-28] MEDS: *HR* Enoxaparin 40 MG/0.4 ML SYRINGE SQ SCH (04:26)
[2021-06-28 07:47] VITALS: O2SAT 97
[2021-06-28] MEDS: Cefdinir 300 MG CAPSULE PO SCH ×2 (07:52→22:03)
[2021-06-28] MEDS: Cyanocobalamin (B-12) 1,000 MCG TABLET PO SCH (07:52)
[2021-06-28] MEDS: Carbidopa/Levodopa 25/100 TABLET PO SCH ×3 (07:53→22:03)
[2021-06-28] MEDS: metroNIDAZOLE 500 MG TABLET PO SCH ×3 (07:53→22:03)
[2021-06-28] MEDS: QUEtiapine Fumarate 25 MG TABLET PO SCH ×2 (07:53→16:17)
[2021-06-29] MEDS: *HR* Enoxaparin 40 MG/0.4 ML SYRINGE SQ SCH (04:49)
[2021-06-29 07:28] VITALS: BP 155/83; PULSE 67; RESP 14; TEMP 97.6
[2021-06-29] MEDS: Cefdinir 300 MG CAPSULE PO SCH (08:19)
[2021-06-29] MEDS: QUEtiapine Fumarate 25 MG TABLET PO SCH (08:19)
[2021-06-29] MEDS: Cyanocobalamin (B-12) 1,000 MCG TABLET PO SCH (08:19)
[2021-06-29] MEDS: metroNIDAZOLE 500 MG TABLET PO SCH (08:19)
[2021-06-29] MEDS: Carbidopa/Levodopa 25/100 TABLET PO SCH (08:19)
== END 2021-06-29 12:05 | disposition home health service (06) | DRG 179 ==
LOC: INPGRE 15:33
PROVIDERS: ADMIT Family Medicine; ATTEND Family Medicine